=== PATIENT | male | born 1970 | race Caucasian/White ===

== ENCOUNTER → 2020-10-09 09:15 | Outpatient (BNVA) | payer MEDICARE, SELFPAY | PROVIDERS: Family Provider Nurse Practitioner Family; PCP Nurse Practitioner Family; Visit Provider Surgery | DX: K40.90 Unilateral inguinal hernia, without obstruction or gangrene, not specified as recurrent (principal); Z20.822 Contact with and (suspected) exposure to COVID-19 | CPT/HCPCS: 87635 ==

== ENCOUNTER 2020-10-15 09:53 | Day surgery (SDC) | payer MEDICARE, SELFPAY ==
[2020-10-14 14:05] VITALS: BMI 28.5
[2020-10-15 10:02] VITALS: BP 135/91; PULSE 64; RESP 18; TEMP 36.2; O2SAT 99
[2020-10-15] MEDS: sodium chloride 0.9% 1,000 ML 30 ML IV (10:20)
--- NOTE | 2020-10-15 10:24 | P.ANESASSM_ITS ---
Pre-Anesthetic Assessment Pre-Anesthetic Assessment: Height/Weight: Height 1.83 m Weight 95.254 kg Temp Pulse Resp BP Pulse Ox 97.2 F L 64 18 135/91 99 10/15/20 10:02 10/15/20 10:02 10/15/20 10:02 10/15/20 10:02 10/15/20 10:02 Preop Diagnosis: Hernia Proposed Procedure: Operation Date: 10/15/20 11:40 Proposed Procedures p Laparoscopic Inguinal Hernia Repair 05927 K40.90(Bilateral) - Christiano Negron MD Familial anesthetic complications: None Was Beta Karthik taken within 24 hours: N/A Was Clonidine taken within 24 hours: N/A Last intake: Intake Last Liquid Date 10/14/20 Last Liquid Time 21:00 Last Solid Date 10/14/20 Last Solid Time 19:00 Social: Social History: No alcohol and No tobacco Exam: Pre-Anes Outpt Exam: alert, oriented x 3, clear to auscultation bilaterally and regular rate & rhythm Airway: Cervical ROM: WNL MP: 3 Dentition: Full Anesthetic Plan: ASA status: 2 Anesthesia: General Risk of > 500 ml blo od loss (7ml/kg in children): No PFSH Anesthesia PFSH: Surgical History History of back surgery 2011 History of knee surgery left 1993 Family History Other Cancer Denies family history of Diabetes CAD (coronary artery disease) Hypertension Stroke Social History Smoking and tobacco status: current every day smoker smokeless tobacco Alcohol intake: never Lives independently: Yes Household members: spouse Marital status: Data Anesthesia Cardiac Studies: No Data to Display
--- NOTE | 2020-10-15 10:51 | W.PM.OPSUD ---
Surgery/Procedure H&P Update DATE OF PROCEDURE: October 15, 2020 DATE H&P PERFORMED: 10/07/20 H&P UPDATE INFORMATION: I have reviewed H&P completed within last 30 days, I have examined patient prior to procedure and No changes to prior documentation PREOP DIAGNOSIS: Hernia PLANNED PROCEDURE: Operation Date: 10/15/20 11:40 Proposed Procedures p Laparoscopic Inguinal Hernia Repair 85021 K40.90(Bilateral) - Christiano Negron MD
--- NOTE | 2020-10-15 12:30 | P.OP_ITS ---
Operative Report Date of procedure: October 15, 2020 Pre-op Diagnosis: Bilateral reducible inguinal hernia Post-op Diagnosis: 1. Reducible large right direct inguinal hernia 2. Reducible left direct inguinal hernia Procedure Done: Laparoscopic repair of bilateral inguinal hernia with Ultrapro mesh measuring 15 x 10 cm x 2 Pathology: none sent Surgeon: Christiano Negron Anesthesia: General Condition: stable Disposition: PACU Procedure: The patient was taken to the operating room. After IV antibiotic was administered, the abdomen was prepped and draped in a sterile manner. Using a 15 blade, a 1.0 cm transverse incision was made infraumbilically on the right side. Subcutaneous tissue was divided using electrocautery and the anterior rectus sheath divided using an 11 blade. The rectus muscle was retracted laterally and the extraperitoneal space identified. A 11 mm port was placed and 12 mm of pneumoperitoneum was created. A 10 mm 30? scope was introduced and the retrorectus space was opened using the camera up to the pubic symphysis and 5 mm ports were placed in the midline, one 2-fingerbreadths above the pubic symphysis and the other midway between these two ports under direct visualization. Blunt dissection was carried out to open up the tissue in the midline and to the pubic symphysis, which was identified. The dissection was then carried laterally on the right side where the iliopubic tract was identified. There was no femoral or obturator hernia noted. There was a large direct hernia containing preperitoneal fat which was reduced. The inferior epigastric artery was identified and dissection was carried posterior t o it and laterally, the space was opened up to the level of the umbilicus superior to the anterior superior iliac spine. I then proceeded to dissect out the spermatic cord and there was no indirect hernia. The dissection was then carried laterally on the left side where the iliopubic tract was identified. There was no femoral or obturator hernia noted. There was a smaller direct hernia containing preperitoneal fat which was reduced. The inferior epigastric artery was identified and dissection was carried posterior to it and laterally, the space was opened up to the level of the umbilicus superior to the anterior superior iliac spine. The spermatic cord was dissected out and there was no indirect hernia. 15 x 10cm Ultrapro mesh was rolled and introduced through the 10 mm port and th en rolled laterally and apposed well against the abdominal wall to cover the myopectineal orifice completely on the right side and secured in place with Securestraps. 15 x 10cm Ultrapro mesh was rolled and introduced through the 10 mm port and then rolled laterally and apposed well against the abdominal wall to cover the myopectineal orifice completely on the left side and secured in place with Securestraps. 10 Cc of 0.5% Marcaine was infiltrated into the preperitoneal space. The extraperitoneal space was desufflated under direct visualization to ensure no slippage of hernial sac under the mesh. All ports were removed, the anterior rectus fascia at the infraumbilical port closed using figure of eight 0 Vicryl sutures, subcutaneous tissue approximated using 3-0 Vicryl sutures and skin at all three port sites were closed using running subcuticular 4-0 Monocryl sutures and Dermabond. 10 mL of 0.5% Marcaine was infiltrated at the port sites. The patient was stable throughout the procedure, extubated and transferred to recovery room.
[2020-10-15 12:39] VITALS: BP 136/85; PULSE 78; RESP 20; TEMP 36.1; O2SAT 98
[2020-10-15 12:45] VITALS: BP 125/100; PULSE 64; RESP 16; O2SAT 98
[2020-10-15 12:50] VITALS: BP 133/90; PULSE 62; RESP 13; TEMP 36.3; O2SAT 99
[2020-10-15 12:59] VITALS: BP 130/95; PULSE 64; RESP 16; TEMP 36.3; O2SAT 98
[2020-10-15] MEDS: ondansetron 2 mg/ML SDV 2 mL 4 MG IVP ×2 (13:10→13:26)
[2020-10-15 13:27] VITALS: PULSE 51; RESP 18; O2SAT 98
[2020-10-15] MEDS: HYDROcodone-acetaminophen 5-325 mg Tablet 1 TAB PO (13:50)
--- NOTE | 2020-10-15 14:12 | ANE.PACU2 ---
Inpatient post-anesthesia follow up: Airway intact: Yes Vital signs: Temperature 97.4 F Pulse Rate 51 Respiratory Rate 18 Blood Pressure 130/95 Pulse Oximetry 98 Oxygen Delivery Me thod Room Air Oxygen Flow Rate Fraction of Inspir ed Oxygen Hydration adequate: Yes Nausea and vomiting: No Pain level: 2 Mental status: Baseline
== END 2020-10-15 13:50 | disposition home or self-care (01) ==
PROVIDERS: PCP Nurse Practitioner Family; Visit Provider Surgery
PROC: (CPT 49650; principal; 2020-10-15 11:30)
DX: K40.90 Unilateral inguinal hernia, without obstruction or gangrene, not specified as recurrent (principal); F17.210 Nicotine dependence, cigarettes, uncomplicated; F17.290 Nicotine dependence, other tobacco product, uncomplicated
CPT/HCPCS: 49505; 96374; 96375; J0690; J1100; J2405; J2704; J2710; J3010; J3490; J7030

== ENCOUNTER 2021-06-19 12:33 | Outpatient (CLI) | payer MEDICARE, SELFPAY ==
[2021-06-19 12:39] VITALS: BP 135/79; PULSE 74; RESP 16; TEMP 36.8; O2SAT 95; BMI 29.0
[2021-06-19 13:07] VITALS: BP 135/79; PULSE 67; RESP 16; TEMP 36.6; O2SAT 95
[2021-06-19 14:07] VITALS: BP 131/84; PULSE 62; RESP 16; TEMP 36.6; O2SAT 98
== END 2021-06-19 12:34 | disposition home or self-care (01) ==
PROVIDERS: PCP Nurse Practitioner Family; Visit Provider Nurse Practitioner Family
DX: U07.1 COVID-19 (principal)
CPT/HCPCS: 96365

== ENCOUNTER 2023-02-17 01:34 | Emergency (ER) | payer MEDICARE, SELFPAY ==
[2023-02-17] VITALS (13 sets, daily range): BP systolic 140–185; BP diastolic 78–108; PULSE 68–77; RESP 15–18; TEMP 36.7; O2SAT 95–99; BMI 29.1
--- NOTE | 2023-02-17 01:50 | CTR_ITS ---
PROCEDURE INFORMATION: Exam: CT Abdomen And Pelvis Without Contrast Exam date and time: 02/17/2023 1:57 AM Age: 52 years old Clinical indication: Abdominal pain; Localized; Left; Additional info: Left flank pain radiating into groin TECHNIQUE: Imaging protocol: Computed tomography of the abdomen and pelvis without contrast. Radiation optimization: All CT scans at this facility use at least one of these dose optimization techniques: automated exposure control; mA and/or kV adjustment per patient size (includes targeted exams where dose is matched to clinical indication); or iterative reconstruction. REPORTING DATA: Count of CT and Cardiac NM exams in prior 12 months: This patient has received 0 known CTs and 0 known cardiac nuclear medicine studies in the 12 months prior to the current study. COMPARISON: ES surgery / GI images 10/15/2020 10:38 AM RADIATION DOSE METRICS: Total DLP (mGy-cm): 920.93 FINDINGS: Lungs: The visualized lung bases are unremarkable. Liver: Normal. No mass. Gallbladder and bile ducts: Normal. No calcified stones. No ductal dilation. Pancreas: Normal. No ductal dilation. Spleen: Normal. No splenomegaly. Adrenal glands: Normal. No mass. Kidneys and ureters: There is extensive perirenal stranding noted around the left kidney with no obstructing stones visualized. Proximal portion of the ureter also contains stranding, these findings suggest recent passage of a stone. Distally, there is a 3 mm stone within the bladder wall. Stomach and bowel: Unremarkable. No obstruction. No mucosal thickening. Appendix: No evidence of appendicitis. Intraperitoneal space: Unremarkable. No free air. No significant fluid collection. Vasculature: Unremarkable. No abdominal aortic aneurysm. Lymph nodes: Unremarkable. No enlarged lymph nodes. Urinary bladder: See Kidneys and ureters finding. Reproductive: Unremarkable as visualized. Bones/joints: Unremarkable. No acute fracture. Soft tissues: Unremarkable. CT/CT abdomen pelvis wo con [id number] IMPRESSION: Inflamed left kidney with evidence of recently passed stone.
[2023-02-17 01:58] LABS: Basophils % 0.4 %; Eosinophils % 0.1 %; Hematocrit 50.5 % (37-53); Lymphocytes # 1.2 10^3/uL (0.8-4.8); Lymphocytes % 11.5 %; Mean Corpuscular HGB Conc 33.3 g/dL (30-55); Mean Corpuscular Hemoglobin 28.3 pg (27-33); Mean Platelet Volume 9.2 fL (7.4-10.4); Monocytes # 0.4 10^3/uL (0.2-0.9); Neutrophils # 8.73 10^3/uL (1.8-7.7); Neutrophils % 83.6 %; Nucleated Red Blood Cells % 0 %; Platelet Count 244 10^3/cmm (157-399); Red Blood Count 5.94 10^6/uL (3.85-5.65); Red Cell Distribution Width 12.6 % (12.1-15.1); White Blood Count 10.44 10^3/uL (3.29-11.43)
[2023-02-17 01:58] LABS: Add Urine Microscopic? NO; Charge for UA Resulting for Rev
[2023-02-17] MEDS: sodium chloride 0.9% 1,000 ML 999 ML IV (02:02)
[2023-02-17] MEDS: orphenadrine 30 mg/mL Inj 2 mL 60 MG IVP (02:03)
[2023-02-17] MEDS: ketorolac 30 mg/mL INJ IVP (02:03)
[2023-02-17 02:07] LABS: Urine Appearance Clear (CLEAR); Urine Color Yellow (Yellow)
[2023-02-17 02:08] LABS: Bilirubin Urine Neg (Negative); Blood Urine Neg (Negative); Glucose Urine UA Norm (Normal); Ketones Urine 1+ (Negative); Leukocyte Esterase Urine Negative (Negative); Nitrate Urine Negative (Negative); Protein Urine Neg (Negative); Urobilinogen Urine 1 mg/dL (Negative); pH Urine 6 (5-7)
--- NOTE | 2023-02-17 02:11 | ED_ITS ---
HPI - Male Genitourinary General: Chief complaint: Urogenital-Male Stated complaint: abd pain Time Seen by Provider: 02/17/23 01:40 History of Present Illness: Patient presents to the ER with complaints of left flank pain that wraparound to his left groin area. Patient described as sudden onset sharp stabbing that cause nausea and vomiting. Patient is never anything like this before. Patient said this comes in waves and in between the waves the pain continued to be dull and achy. Patient does not know anything it made this pain worse or better. This started earlier today approximately several hours ago. Review of Systems General: Reports: 10 or more systems reviewed and unremarkable except in HPI and below PFSH ED PFSH: Surgical History History of back surgery 2011 History of knee surgery left 1993 S/P bilateral inguinal hernia repair (10/15/20) Family History Other Cancer Denies family history of Diabetes CAD (coronary artery disease) Hypertension Stroke Social History Smoking and tobacco status: current every day smoker smokeless tobacco Alcohol intake: never Substance/Drug Use: never Lives independently: Yes Household members: spouse Marital status: Physical Exam Const: COMMON NORMALS: no acute distress, average body habitus, patient oriented x3, no limitations, healthy appearing, alert and well nourished HENMT: COMMON NORMALS: normocephalic, atraumatic, hearing grossly normal bilaterally, external ears normal, Normal external nose present and moist oral mucous membranes HEAD & SCALP: normocephalic and atraumatic NOSE: Normal external nose present EXTERNAL EAR: Yes external ears normal Eye: COMMON NORMALS: Equal, round and reactive pupils present, EOMs intact bilaterally, conjunctivae normal and no scleral icterus CONJUNCTIVA: Yes conjunctivae normal PUPIL: Yes Equal, round and reactive pupils present Neck/C-Spine: COMMON NORMALS: full ROM, no lymphadenopathy, supple, no meningeal signs, no JVD and Thyroid normal THYROID: Thyroid normal Chest: COMMONS NORMALS: normal inspection of the chest and normal palpation of entire chest wall Resp: COMMON NORMALS: normal respiratory effort, No retractions, No use of accessory muscles and clear to auscultation bilaterally AUSCULTATION: clear to auscultation bilaterally Cardio: COMMON NORMALS: no JVD, regular rate, regular rhythm, S1 normal heart sound present, S2 normal heart sound present, No gallops present (Cardio), No clicks present (Cardio), No murmurs present (Cardio) and No rub (Cardio) RATE: regular rate RHYTHM: regular rhythm HEART SOUNDS: S1 normal heart sound present and S2 normal heart sound present GI: COMMON NORMALS: Normal to inspection, nondistended, normoactive bowel sounds present, Soft to palpation, non-tender, No hepatosplenomegaly present and no masses PALPATION: Yes Soft to palpation and Yes No hepatosplenomegaly present : COMMON NORMALS: Yes no CVA tenderness BLADDER/KIDNEY EXAM: Yes no CVA tenderness Back/Pelvis: COMMON NORMALS: no CVA tenderness Neuro: COMMON NORMALS: patient oriented x3 SENSORIUM/ORIENTATION: Yes alert MENINGEAL SIGNS: Yes no meningeal signs Course Vital Signs: Vital signs: Vital Signs Temperature 98.1 F 02/17/23 01:39 Pulse Rate 72 02/17/23 01:42 Respiratory Rate 18 02/17/23 01:42 Blood Pressure 185/108 02/17/23 01:42 Pulse Oximetry 96 02/17/23 01:42 Oxygen Delivery Me thod Room Air 02/17/23 01:42 MDM - Male Medical Decision Making Patient presents to the ER with left-sided flank pain that radiated to his groin. Sharp stabbing nature. Patient had lab work and CT scan CT scan showed evidence of a passed stone. And there was a 3 mm stone in his bladder. Patient is pain-free during his stay in ER after the Toradol and Norflex. Patient be discharged home to follow-up with his PCP as needed. Differential Diagnosis Unlikely urinary tract infection, priapism, urethritis, epididymitis, genital herpes simplex, prostatitis, acute retention of urine or inguinal hernia Medical Records I reviewed the patient's medical records. Lab Data I reviewed the patient's lab results. 02/17/23 01:42 02/17/23 01:42 Laboratory Results WBC 10.44 10^3/uL (3.29-11.43) 02/17/23 01:42 RBC 5.94 10^6/uL (3.85-5.65) H 02/17/23 01:42 Hgb 16.80 g/dL (11.27-16.99) 02/17/23 01:42 Hct 50.5 % (37-53) 02/17/23 01:42 MCV 85.0 fl (82-101) 02/17/23 01:42 MCH 28.3 pg (27-33) 02/17/23 01:42 MCHC 33.3 g/dL (30-55) 02/17/23 01:42 RDW 12.6 % (12.1-15.1) 02/17/23 01:42 Plt Count 244 10^3/cmm (157-399) 02/17/23 01:42 MPV 9.2 fL (7.4-10.4) 02/17/23 01:42 Neut % (Auto) 83.6 % 02/17/23 01:42 Lymph % (Auto) 11.5 % 02/17/23 01:42 [place] % (Auto) 4.0 % 02/17/23 01:42 Eos % (Auto) 0.1 % 02/17/23 01:42 Baso % (Auto) 0.4 % 02/17/23 01:42 Neut # (Auto) 8.73 10^3/uL (1.8-7.7) H 02/17/23 01:42 Lymph # (Auto) 1.2 10^3/uL (0.8-4.8) 02/17/23 01:42 [place] # (Auto) 0.4 10^3/uL (0.2-0.9) 02/17/23 01:42 Eos # (Auto) 0.0 10^3/uL (0.0-0.8) 02/17/23 01:42 Baso # (Auto) 0.0 10^3/uL (0.0-0.1) 02/17/23 01:42 Nucleated RBC % (auto) 0 % 02/17/23 01:42 Nucleated RBCs # 0.0 /100WBC 02/17/23 01:42 Urine Color Yellow (Yellow) 02/17/23 01:44 Urine Appearance Clear (CLEAR) 02/17/23 01:44 Urine pH 6 (5-7) 02/17/23 01:44 Ur Specific [place] 1.020 (1.005-1.030) 02/17/23 01:44 Urine Protein Neg (Negative) 02/17/23 01:44 Urine Glucose (UA) Norm (Normal) 02/17/23 01:44 Urine Ketones 1+ (Negative) H 02/17/23 01:44 Urine Blood Neg (Negative) 02/17/23 01:44 Urine Nitrate Negative (Negative) 02/17/23 01:44 Urine Bilirubin Neg (Negative) 02/17/23 01:44 Urine Urobilinogen 1 mg/dL (Negative) H 02/17/23 01:44 Ur Leukocyte Esterase Negative (Negative) 02/17/23 01:44 Discharge Plan Discharge Patient Disposition: Home Clinical Impression: Kidney stone on left side Condition: Stable Prescriptions: No Action docusate sodium [Colace] 100 mg capsule 100 mg PO BID Qty: 30 0RF hydrocodone-acetaminophen 5-325 mg tablet 1 tab PO Q6H PRN (Reason: pain) Qty: 20 0RF ondansetron HCl [Zofran] 4 mg tablet 4 mg PO Q6H PRN (Reason: nausea and vomiting) Qty: 20 0RF Discharge Orders: Discharge ED (Routine); Ordered 02/17/23 Ordered By: Franky Bray Referrals: Arjun,CIARAN Berumen [Primary Care Provider] - 1 week Patient Instructions: Kidney Stones Activity Restrictions/Additional Instructions: Please drink plenty of water. Please take Tylenol and/or Motrin as needed for pain. Please follow-up with your family practice doctor in approximately 7 days for further evaluation and treatment. Coding Level of Care Code ED Vac[employer] for Hugh Shanks
[2023-02-17 02:19] LABS: Alanine Aminotransferase 32 U/L (0-41); Albumin Level 5.2 g/dL (3.5-5.2); Alkaline Phosphatase 72 U/L (40-130); Aspartate Amino Transferase 23 U/L (0-40); Blood Urea Nitrogen 12 mg/dL (6-20); Calcium 9.7 mg/dL (8.5-10.5); Carbon Dioxide 27 mmol/L (22-29); Chloride 105 mmol/L (98-107); Globulin 2.6 g/dL (1.3-4.6); Glomerular Filtration Rate 42.5 mL/min (90-130); Glucose 140 mg/dL (65-115); Osmolality Calculated 296 mOsm/kg (285-295); Sodium 142 mmol/L (136-145); Total Bilirubin 0.7 mg/dL (0.15-1.2); Total Protein 7.8 g/dL (6.6-8.7)
== END 2023-02-17 03:10 | disposition home or self-care (01) ==
PROVIDERS: Emergency Provider Emergency Medicine; PCP Nurse Practitioner Family
DX: N20.0 Calculus of kidney (principal); F17.220 Nicotine dependence, chewing tobacco, uncomplicated
CPT/HCPCS: 74176; 80053; 81003; 85025; 96361; 96374; 96375; 99285; J1885; J2360; J7030

== ENCOUNTER 2024-09-07 12:21 | Emergency (ER) | payer MEDICARE, SELFPAY ==
[2024-09-07 12:44] VITALS: BP 150/73; PULSE 70; RESP 17; TEMP 36.8; O2SAT 96; BMI 29.8
[2024-09-07 13:15] LABS: Basophils % 0.4 %; Eosinophils # 0.1 10^3/uL (0.0-0.8); Eosinophils % 0.9 %; Hematocrit 46.6 % (37-53); Lymphocytes % 20.1 %; Mean Corpuscular HGB Conc 32.4 g/dL (30-55); Mean Corpuscular Volume 86.3 fl (82-101); Mean Platelet Volume 9.1 fL (7.4-10.4); Monocytes # 0.9 10^3/uL (0.2-0.9); Monocytes % 8.6 %; Neutrophils # 7.08 10^3/uL (1.8-7.7); Neutrophils % 69.7 %; Nucleated Red Blood Cells % 0 %; Platelet Count 201 10^3/cmm (157-399); White Blood Count 10.15 10^3/uL (3.29-11.43)
[2024-09-07 13:18] LABS: Bacteria Urine None Seen /hpf; Hyaline Casts Urine 0.81 /lpf; RBC Urine 0-2 /hpf (0-2); Squamous Epithelial Cell Urine 0-5 /hpf (0-5); WBC Urine 0-5 /hpf (0-5)
[2024-09-07 13:27] LABS: Add Urine Microscopic? YES; Bilirubin Urine Neg (Negative); Blood Urine Neg (Negative); Glucose Urine UA Norm (Normal); Ketones Urine Negative (Negative); Leukocyte Esterase Urine Negative (Negative); Nitrate Urine Negative (Negative); Protein Urine Neg (Negative); Urine Appearance Clear (CLEAR); Urine Color Yellow (Yellow); Urobilinogen Urine Neg (Negative); pH Urine 6 (5-7)
[2024-09-07 13:41] LABS: Alanine Aminotransferase 20 U/L (0-41); Albumin Level 4.4 g/dL (3.5-5.2); Alkaline Phosphatase 65 U/L (40-130); Anion Gap 13.9 (5-19); Aspartate Amino Transferase 14 U/L (0-40); Blood Urea Nitrogen 9 mg/dL (6-20); Calcium 8.9 mg/dL (8.5-10.5); Carbon Dioxide 26 mmol/L (22-29); Chloride 103 mmol/L (98-107); Creatinine Clr Calc Pharmacy 94.9926; Globulin 2.8 g/dL (1.3-4.6); Glucose 95 mg/dL (65-115); Osmolality Calculated 286 mOsm/kg (285-295); Potassium 3.9 mmol/L (3.5-5.1); Sodium 139 mmol/L (136-145); Total Bilirubin 0.9 mg/dL (0.15-1.2); Total Protein 7.2 g/dL (6.6-8.7)
[2024-09-07 14:08] VITALS: BP 131/90; PULSE 65; RESP 16; O2SAT 98
--- NOTE | 2024-09-07 14:17 | ED_ITS ---
HPI - Abdominal Pain 2 General: Chief Complaint: Abdominal Pain Stated Complaint: lower left abdominal pain Time Seen by Provider: 09/07/24 13:06 Source: patient Mode of arrival: ambulatory Limitations: no limitations History of Present Illness: Patient is a 53-year-old male who presents today with complaints of left lower quadrant pain. Pain has been present about a week or so. He states he first began noticing pain with bumps in the road while driving. He notes that last evening this pain increased and was diffuse through the abdomen. He states the discomfort kept him up all evening. Patient reports that after he had a bowel movement this morning, and the diffuse pain was relieved but the left lower quadrant abdominal pain has remained. Denies nausea, vomiting, diarrhea, blood or mucus in stool. No fevers. He has never had a colonoscopy. MD elicited complaint: abdominal pain Pertinent past history: constipation Onset (ago): day(s) Pain Consistency: constant Location: Diffuse (resolved) and LLQ Severity: moderate Quality: cramping, stabbing and dull Radiation: none Migration to: no migration Exacerbating factors: nothing Relieving factors: bowel movement Associated Symptoms: Reports chills, constipation and GI cramping; Denies change in stool character, coffee ground emesis, diarrhea, dysuria, fever(s), hematochezia, hematuria, hematemesis, fecal incontinence, loose stools, melena, nausea, syncope and vomiting Treatments prior to arrival: other (stool softener) Related Data Home Medications ?Medication ?Instructions ?Recorded ?Confirmed omeprazole magnesium 20 mg 20 mg PO DAILY 09/07/2409/28 tablet,delayed release (Prilosec OTC) Previous Rx's ?Medication ?Instructions ?Recorded amoxicillin 875 mg-potassium 1 tab PO BID #14 tabs 09/28 clavulanate 125 mg tablet Allergies Allergy/AdvReac Type Severity Reaction Status Date / Time No Known Allergies Allergy Verified 02/17/23 01:42 Review of Systems 2 Const: Reports: chills; Denies: fever(s), change in weight or fatigue Card: Denies: chest pain, palpitations or syncope Resp: Denies: dyspnea GI: Reports: abdominal pain, constipation and GI cramping; Denies: nausea, vomiting, hematemesis, coffee ground emesis, diarrhea, fecal incontinence, change in stool character, hematochezia or melena : Denies: flank pain, dysuria or hematuria Musc: Denies: neck pain, back pain, extremity pain, extremity swelling or joint swelling Skin/Breast: Denies: rash Neuro: Denies: headache(s) or dizziness PFSH ED 2 PFSH: Surgical History S/P bilateral inguinal hernia repair (10/15/20) History of back surgery 2012 History of knee surgery left 1994 Family History Other Cancer Denies family history of Diabetes CAD (coronary artery disease) Hypertension Stroke Social History Smoking and tobacco/nicotine status: current every day tobacco/nicotine user smokeless tobacco Alcohol intake: never Substance/Drug Use: never Lives independently: Yes Household members: spouse Marital status: Physical Exam 2 Const: COMMON NORMALS: no acute distress, average body habitus, patient oriented x3, no limitations, healthy appearing, alert and well nourished Chest: COMMONS NORMALS: normal inspection of the chest Resp: COMMON NORMALS: normal respiratory effort and clear to auscultation bilaterally AUSCULTATION: clear to auscultation bilaterally Cardio: COMMON NORMALS: regular rate and regular rhythm RATE: regular rate RHYTHM: regular rhythm GI: COMMON NORMALS: Normal to inspection, nondistended, normoactive bowel sounds present, Soft to palpation, No hepatosplenomegaly present and no masses INSPECTION: Yes normal to inspection AUSCULTATION: Yes normoactive bowel sounds PALPATION: Yes Soft to palpation, Yes Tenderness to palpation present (GI) (LLQ), Yes Guarding due to palpation present (GI) (with palpation of LLQ), No Rigid due to palpation and Yes No hepatosplenomegaly present : COMMON NORMALS: Yes no CVA tenderness BLADDER/KIDNEY EXAM: Yes no CVA tenderness Back/Pelvis: COMMON NORMALS: no CVA tenderness Extremity: GENERAL: Yes normal exam except as noted Neuro: COMMON NORMALS: patient oriented x3 SENSORIUM/ORIENTATION: Yes alert Skin: COMMON NORMALS: no rashes or lesions noted GENERAL SKIN EXAM: no rashes or lesions noted Course 2 Vital Signs: Vital signs: Vital Signs Temperature 98.2 F 09/07/24 12:44 Pulse Rate 97 09/07/24 16:00 Respiratory Rate 16 09/07/24 16:00 Blood Pressure 117/84 09/07/24 16:00 Pulse Oximetry 98 09/07/24 16:00 Oxygen Delivery Me thod Room Air 09/07/24 16:00 MDM - Abdominal Pain Medical Decision Making Patient with left lower quadrant abdominal pain over the past week. Vital signs are stable. Blood work is unremarkable. CT consistent with an acute left-sided diverticulitis. Patient will be placed on antibiotic therapy. Recommend he follow-up with primary care next week. Return ED precautions discussed. Medical Records I reviewed the patient's medical records. Lab Data I reviewed the patient's lab results. 09/07/24 13:09 09/07/24 13:09 Labs/Radiology: Radiology Impressions Abdomen/Pelvis CT 09/07/24 14:33 IMPRESSION: 1. Findings consistent with acute left-sided diverticulitis. 2. Mild diffuse fatty liver. Laboratory Results WBC 10.15 10^3/uL (3.29-11.43) 09/07/24 13:09 RBC 5.40 10^6/uL (3.85-5.65) 09/07/24 13:09 Hgb 15.10 g/dL (11.27-16.99) 09/07/24 13:09 Hct 46.6 % (37-53) 09/07/24 13:09 MCV 86.3 fl (82-101) 09/07/24 13:09 MCH 28.0 pg (27-33) 09/07/24 13:09 MCHC 32.4 g/dL (30-55) 09/07/24 13:09 RDW 13.0 % (12.1-15.1) 09/07/24 13:09 Plt Count 201 10^3/cmm (157-399) 09/07/24 13:09 MPV 9.1 fL (7.4-10.4) 09/07/24 13:09 Neut % (Auto) 69.7 % 09/07/24 13:09 Lymph % (Auto) 20.1 % 09/07/24 13:09 [place] % (Auto) 8.6 % 09/07/24 13:09 Eos % (Auto) 0.9 % 09/07/24 13:09 Baso % (Auto) 0.4 % 09/07/24 13:09 Neut # (Auto) 7.08 10^3/uL (1.8-7.7) 09/07/24 13:09 Lymph # (Auto) 2.0 10^3/uL (0.8-4.8) 09/07/24 13:09 [place] # (Auto) 0.9 10^3/uL (0.2-0.9) 09/07/24 13:09 Eos # (Auto) 0.1 10^3/uL (0.0-0.8) 09/07/24 13:09 Baso # (Auto) 0.0 10^3/uL (0.0-0.1) 09/07/24 13:09 Nucleated RBC % (auto) 0 % 09/07/24 13:09 Nucleated RBCs # 0.0 /100WBC 09/07/24 13:09 Sodium 139 mmol/L (136-145) 09/07/24 13:09 Potassium 3.9 mmol/L (3.5-5.1) 09/07/24 13:09 Chloride 103 mmol/L (98-107) 09/07/24 13:09 Carbon Dioxide 26 mmol/L (22-29) 09/07/24 13:09 Anion Gap 13.9 (5-19) 09/07/24 13:09 BUN 9 mg/dL (6-20) 09/07/24 13:09 Creatinine 1.1 mg/dL (0.7-1.2) 09/07/24 13:09 GFR Calculation 70.0 mL/min (90-130) L 09/07/24 13:09 Glucose 95 mg/dL (65-115) 09/07/24 13:09 Calculated Osmolality 286 mOsm/kg (285-295) 09/07/24 13:09 Calcium 8.9 mg/dL (8.5-10.5) 09/07/24 13:09 Total Bilirubin 0.9 mg/dL (0.15-1.2) 09/07/24 13:09 AST 14 U/L (0-40) 09/07/24 13:09 ALT 20 U/L (0-41) 09/07/24 13:09 Alkaline Phosphatase 65 U/L (40-130) 09/07/24 13:09 Total Protein 7.2 g/dL (6.6-8.7) 09/07/24 13:09 Albumin 4.4 g/dL (3.5-5.2) 09/07/24 13:09 Globulin 2.8 g/dL (1.3-4.6) 09/07/24 13:09 Urine Color Yellow (Yellow) 09/07/24 13:05 Urine Appearance Clear (CLEAR) 09/07/24 13:05 Urine pH 6 (5-7) 09/07/24 13:05 Ur Specific [place] 1.010 (1.005-1.030) 09/07/24 13:05 Urine Protein Neg (Negative) 09/07/24 13:05 Urine Glucose (UA) Norm (Normal) 09/07/24 13:05 Urine Ketones Negative (Negative) 09/07/24 13:05 Urine Blood Neg (Negative) 09/07/24 13:05 Urine Nitrate Negative (Negative) 09/07/24 13:05 Urine Bilirubin Neg (Negative) 09/07/24 13:05 Urine Urobilinogen Neg mg/dL (Negative) 09/07/24 13:05 Ur Leukocyte Esterase Negative (Negative) 09/07/24 13:05 Urine RBC 0-2 /hpf (0-2) 09/07/24 13:05 Urine WBC 0-5 /hpf (0-5) 09/07/24 13:05 Ur Squamous Epith Cells 0-5 /hpf (0-5) 09/07/24 13:05 Amorphous Sediment Not Reportable 09/07/24 13:05 Urine Bacteria None seen /hpf (NONE) 09/07/24 13:05 Hyaline Casts 0.81 /lpf 09/07/24 13:05 All radiology interpretation(s) finalized by discharge Discharge Plan Discharge Patient Disposition: Home Clinical Impression: Diverticulitis Condition: Stable Prescriptions: New amoxicillin-pot clavulanate 875-125 mg tablet 1 tab PO BID Qty: 14 0RF No Action omeprazole magnesium [Prilosec OTC] 20 mg Tablet,Delayed Release (Dr/Ec) 20 mg PO DAILY Discharge Orders: Discharge ED (Routine); Ordered 09/07/24 Ordered By: Eula Moffett Referrals: [place] Díaz APN [Primary Care Provider] - Patient Instructions: Diverticulitis (DC) Activity Restrictions/Additional Instructions: As we discussed, please fill your antibiotics and start them immediately. You may return to the emergency department for worsening abdominal pain, bloody stools, inability to tolerate your antibiotics, fevers, generally feeling worse or unwell, or any other concerns you may have. Otherwise I would like you to follow-up with primary care next week. Print Language: Bhutanese Coding Level of Care Code ED Veterinarian Laboratory Animal Care for Hugh Shanks
--- NOTE | 2024-09-07 14:33 | CTR_ITS ---
PROCEDURE INFORMATION: Exam: CT Abdomen And Pelvis With Contrast Exam date and time: 09/07/2024 3:31 PM Age: 53 years old Clinical indication: Abdominal pain; Localized; Left lower quadrant (llq); Additional info: Llq abdominal pain TECHNIQUE: Imaging protocol: Computed tomography of the abdomen and pelvis with contrast. Radiation optimization: All CT scans at this facility use at least one of these dose optimization techniques: automated exposure control; mA and/or kV adjustment per patient size (includes targeted exams where dose is matched to clinical indication); or iterative reconstruction. Contrast material: OMNIPAQUE 350; Contrast volume: 100 ml; Contrast route: INTRAVENOUS (IV); COMPARISON: CT abdomen pelvis wo con [id number] 02/17/2023 1:57 AM RADIATION DOSE METRICS: Total DLP (mGy-cm): 905.46 FINDINGS: Liver: The liver is slightly low in density diffusely suggesting fatty infiltration. Gallbladder and biliary ducts: Normal. No calcified stones. No ductal dilation. Pancreas: Normal. No ductal dilation. Spleen: Normal. No splenomegaly. Adrenal glands: Normal. No mass. Kidneys and ureters: Normal. No hydronephrosis. Stomach and bowel: There is focal moderate wall thickening and pericolonic fat stranding involving the distal descending and proximal sigmoid colon with diverticulosis. Findings are consistent with diverticulitis. The offending diverticulum is noted posteriorly at the junction of the descending and sigmoid colon. Trace fluid is seen in the left retroperitoneum at this level. No organized fluid collections are identified. Appendix: No evidence of appendicitis. Intraperitoneal space: Unremarkable. No free air. No significant fluid collection. Vasculature: Unremarkable. No abdominal aortic aneurysm. Lymph nodes: Unremarkable. No enlarged lymph nodes. Urinary bladder: Unremarkable as visualized. Reproductive: Unremarkable as visualized. Bones/joints: Unremarkable. No acute fracture. Soft tissues: Unremarkable. CT/CT abdomen pelvis w con* [id number] IMPRESSION: 1. Findings consistent with acute left-sided diverticulitis. 2. Mild diffuse fatty liver.
[2024-09-07] MEDS: iohexol 350 mg/mL 500 mL Btl (per mL) IV (15:37)
[2024-09-07 16:00] VITALS: BP 117/84; PULSE 97; RESP 16; O2SAT 98
[2024-09-07 16:44] VITALS: BP 128/83; PULSE 65; RESP 16; O2SAT 97
== END 2024-09-07 16:47 | disposition home or self-care (01) ==
PROVIDERS: Emergency Medicine; Emergency Provider Physician Assistant; PCP Nurse Practitioner Family
DX: K57.92 Diverticulitis of intestine, part unspecified, without perforation or abscess without bleeding (principal); F17.290 Nicotine dependence, other tobacco product, uncomplicated
CPT/HCPCS: 36415; 74177; 80053; 81001; 85025; 99285